=== PATIENT | male | born 1955 | race Caucasian/White ===

== ENCOUNTER → 2017-02-23 | Outpatient (CLI) | payer MEDICARE ==
[~2017-02-23] MED LIST: BREO ELLIP1 PUFF/DOS IH; GLUCOPHAGE-DPS500 MG PO; LASIX DPS20 MG PO; NEURONTIN DPS100 MG PO; NORCO 5-325 TA1 EACH PO; ONE DAILY1 EACH PO; PRILOSEC DPS20 MG PO; TYLENOL DPS325 MG PO; ULTRAM DPS50 MG PO; VITAMIN C1000 MG PO; ZINC CHELATED50 MG PO; ZYLOPRIM-DPS100 MG PO
== END | disposition home or self-care (01) ==
LOC: RAD.S 02-17 10:00
DX: J44.9 Chronic obstructive pulmonary disease, unspecified (principal); M47.814 Spondylosis without myelopathy or radiculopathy, thoracic region; R91.1 Solitary pulmonary nodule